=== PATIENT | female | born 1935 | race Caucasian/White ===

== ENCOUNTER 2021-12-28 16:26 | Emergency (ER) | payer MEDICARE ==
[~2021-12-28] VITALS: Ht 162.5 cm; Wt 70.3 kg
[2021-12-28 18:11] LABS: BASOPHILS % (AUTO) 0 % (0-10); EOSINOPHILS # (AUTO) 0.1 10^3/uL (0.0-0.3); EOSINOPHILS % (AUTO) 1 % (0-10); HEMATOCRIT 37 % (35-52); HEMOGLOBIN 12.1 g/dL (11.5-16.0); LYMPHOCYTES # (AUTO) 1.3 10^3/uL (1.0-4.0); LYMPHOCYTES % (AUTO) 20 % (12-44); MEAN CORPUSCULAR HEMOGLOBIN 32 pg (25-34); MEAN CORPUSCULAR HGB CONC 32 g/dL (32-36); MEAN CORPUSCULAR VOLUME 97 fL (80-99); MEAN PLATELET VOLUME 9.2 fL (9.0-12.2); MONOCYTES # (AUTO) 0.9 10^3/uL (0.0-1.0); MONOCYTES % (AUTO) 14 % (0-12); NEUTROPHILS # (AUTO) 4.2 10^3/uL (1.8-7.8); NEUTROPHILS % (AUTO) 65 % (42-75); PLATELET COUNT 212 10^3/uL (130-400); WHITE BLOOD COUNT 6.4 10^3/uL (4.3-11.0)
[2021-12-28 18:16] LABS: ALBUMIN 3.7 GM/DL (3.2-4.5); CHLORIDE 106 MMOL/L (98-107); SODIUM 139 MMOL/L (135-145)
[2021-12-28 18:17] LABS: CALCIUM 9.2 MG/DL (8.5-10.1); INR 1.4 (0.8-1.4); PROTHROMBIN TIME PATIENT 17.1 SEC (12.2-14.7)
[2021-12-28 18:18] LABS: GLUCOSE 131 MG/DL (70-105)
[2021-12-28 18:19] LABS: TOTAL PROTEIN 6.3 GM/DL (6.4-8.2)
[2021-12-28 18:20] LABS: BILIRUBIN,TOTAL 0.6 MG/DL (0.1-1.0); CARBON DIOXIDE 25 MMOL/L (21-32)
--- NOTE | 2021-12-28 18:20 | ED General ---
General Chief Complaint: Dizziness/Syncope Stated Complaint: SYNCOPE Nursing Triage Note: PT ARRIVED VIA [facility]. PT STATED THAT SHE WAS IN THE TRUCK WITH HER DAUGHTER AND HAD A SYNCOPAL EPISODE. PT STATED THAT SHE FELT SICK BEFORE SHE PASSED OUT AND THEN VOMITED WHEN SHE WOKE UP. Source of Information: Patient (DAUGHTER DOES ALL TALKING FOR PT), Other (DAUGHTER DOES ALL TALKING FOR PT) History of Present Illness Date Seen by Provider: Dec 28, 2021 Time Seen by Provider: 17:55 Initial Comments PT ARRIVED VIA EMS PRIOR TO MY ARRIVAL THEY HAVE BEEN AT [facility] FOR SEVERAL DAYS, AND WERE DRIVING BACK HOME TO [facility] PT HAS NOT FELT WELL FOR THE LAST 3 DAYS HAS BEEN WEAK HAS BEEN SHAKEY AND HAS HAD CHILLS HAS HAD A RUNNY / STUFFY NOSE TODAY IN THE CAR, SHE BEGAN TO HAVE NAUSEA AND VOMITED X 1 AND BRIEFLY WAS "UNCONSCIOUS" FOR APPROXIMATELY 45 SECONDS, THEN IT HAPPENED AGAIN--VOMITED AND WAS "UNCONSCIOUS" FOR A MINUTE TO 1 1/2 MINUTES PT HAS RECEIVED 1 LITER OF IV FLUIDS AND ZOFRAN PRIOR TO MY ARRIVAL PT STATES SHE FEELS BETTER NOW. PT HAS CHRONIC BACK PAIN AND IS TO HAVE A SPINAL STIMULATOR PLACED 01/07/22 HAS HAD INCREASED BACK PAIN THE LAST FEW DAYS PT HAS ATRIAL FIBRILLATION AND IS ON FLECANIDE, XARELTO AND PLAVIX NO MISSED DOSES OF MEDICATIONS NO CHEST PAIN NO SHORTNESS OF BREATH NO PALPITATIONS NO HEADACHE NO PARESTHESIAS OR MOTOR DEFICITS PT HAS HAD COVID-19 VACCINE X 3--LAST DOSE > 6 MONTHS AGO. Allergies and Home Medications Allergies Coded Allergies: cephalexin (Verified Allergy, Unknown, 12/28/21) Patient Home Medication List Home Medication List Reviewed: Yes Nitrofurantoin Monohyd/M-Cryst (Macrobid 100 mg Capsule) 100 Mg Capsule, 1 TAB PO BID Prescribed by: SABINO ALLRED on 12/28/211928 Ondansetron (Ondansetron Odt) 4 Mg Tab.rapdis, 4 MG PO Q4H Prescribed by: SABINO ALLRED on 12/28/211915 Review of Systems Review of Systems Constitutional: see HPI, chills, malaise, weakness EENTM: see HPI, nose congestion Respiratory: no symptoms reported; No cough, No short of breath Cardiovascular: see HPI; No chest pain; syncope Gastrointestinal: see HPI; No abdominal pain; nausea, vomiting Genitourinary: no symptoms reported Musculoskeletal: see HPI, back pain Skin: no symptoms reported Psychiatric/Neurological: See HPI (SYNCOPE); Denies Headache, Denies Numbness, Denies Paresthesia, Denies Seizure, Denies Tingling, Denies Weakness Hematologic/Lymphatic: No Symptoms Reported Immunological/Allergic: no symptoms reported Past Qtamjvf-[id number]-Orwtmp Hx Patient Social History Tobacco Use?: No Substance use?: No Alcohol Use?: Yes Alcohol Frequency: Once in a while Pt feels they are or have been: Unable to obtain Immunizations Up To Date Influenza Vaccine Up-to-Date: Yes; Up-to-Date Past Medical History Cardiac: Yes Atrial Fibrillation, High Cholesterol 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 oz. kg; 26.00 BMI Method: General Appearance: No Apparent Distress, WD/WN, Other (MILD GENERALIZED WEAKNESS. ) HEENT: PERRL/EOMI, Normal ENT Inspection, Moist Mucous Membranes Neck: Normal Inspection Respiratory: Normal Breath Sounds, No Accessory Muscle Use, No Respiratory Distress Cardiovascular: Regular Rate, Rhythm, No Edema, No JVD Gastrointestinal: Non Tender, Soft Extremity: Normal Capillary Refill, Normal Inspection, Normal Range of Motion, Non Tender, No Calf Tenderness, No Pedal Edema Neurologic/Psychiatric: Alert, Oriented x3, No Motor/Sensory Deficits, Normal Mood/Affect, literacy specialist II-XII Norm as Tested Skin: Normal Color, Warm/Dry Focused Exam Lactate Level 12/28/21 18:16: Lactic Acid Level 0.82 Lactic Acid Level Laboratory Tests Test 12/28/21 18:16 Lactic Acid Level 0.82 MMOL/L (0.50-2.00) Progress/Results/Core Measures Suspected Sepsis SIRS Temperature: Pulse: 52 Respiratory Rate: 18 Laboratory Tests 12/28/21 16:31: White Blood Count 6.4 Blood Pressure 113 /32 Mean: 59 12/28/21 18:16: Lactic Acid Level 0.82 Laboratory Tests 12/28/21 16:31: Creatinine 1.04, INR Comment 1.4, Platelet Count 212, Total Bilirubin 0.6 Results/Orders Lab Results Laboratory Tests Test 12/28/21 16:31 12/28/21 18:16 12/28/21 18:45 Range/Units White Blood Count 6.4 4.3-11.0 10^3/uL Red Blood Count 3.84 3.80-5.11 10^6/uL Hemoglobin 12.1 11.5-16.0 g/dL Hematocrit 37 35-52 % Mean Corpuscular Volume 97 80-99 fL Mean Corpuscular Hemoglobin 32 25-34 pg Mean Corpuscular Hemoglobin Concent 32 32-36 g/dL Red Cell Distribution Width 12.7 10.0-14.5 % Platelet Count 212 130-400 10^3/uL Mean Platelet Volume 9.2 9.0-12.2 fL Immature Granulocyte % (Auto) 0 % Neutrophils (%) (Auto) 65 42-75 % Lymphocytes (%) (Auto) 20 12-44 % Monocytes (%) (Auto) 14 H 0-12 % Eosinophils (%) (Auto) 1 0-10 % Basophils (%) (Auto) 0 0-10 % Neutrophils # (Auto) 4.2 1.8-7.8 10^3/uL Lymphocytes # (Auto) 1.3 1.0-4.0 10^3/uL Monocytes # (Auto) 0.9 0.0-1.0 10^3/uL Eosinophils # (Auto) 0.1 0.0-0.3 10^3/uL Basophils # (Auto) 0.0 0.0-0.1 10^3/uL Immature Granulocyte # (Auto) 0.0 0.0-0.1 10^3/uL Erythrocyte Sedimentation Rate 29 0-30 MM/HR Prothrombin Time 17.1 H 12.2-14.7 SEC INR Comment 1.4 0.8-1.4 Activated Partial Thromboplast Time 39 H 24-35 SEC Sodium Level 139 135-145 MMOL/L Potassium Level 4.0 3.6-5.0 MMOL/L Chloride Level 106 98-107 MMOL/L Carbon Dioxide Level 25 21-32 MMOL/L Anion Gap 8 5-14 MMOL/L Blood Urea Nitrogen 19 H 7-18 MG/DL Creatinine 1.04 0.60-1.30 MG/DL Estimat Glomerular Filtration Rate 52 BUN/Creatinine Ratio 18 Glucose Level 131 H 70-105 MG/DL Calcium Level 9.2 8.5-10.1 MG/DL Corrected Calcium 9.4 8.5-10.1 MG/DL Magnesium Level 2.1 1.6-2.4 MG/DL Total Bilirubin 0.6 0.1-1.0 MG/DL Aspartate Amino Transf (AST/SGOT) 23 5-34 U/L Alanine Aminotransferase (ALT/SGPT) 19 0-55 U/L Alkaline Phosphatase 55 40-136 U/L Total Creatine Kinase 76 29-168 U/L Creatine Kinase MB 3.1 <6.6 NG/ML Myoglobin 60.3 10.0-92.0 NG/ML Troponin I < 0.028 <0.028 NG/ML C-Reactive Protein High Sensitivity 4.28 H 0.00-0.50 MG/DL B-Type Natriuretic Peptide 123.6 H <100.0 PG/ML Total Protein 6.3 L 6.4-8.2 GM/DL Albumin 3.7 3.2-4.5 GM/DL Lipase 37 8-78 U/L Procalcitonin 0.05 <0.10 NG/ML TSH Greer Testing 2.10 0.35-4.94 UIU/ML Lactic Acid Level 0.82 0.50-2.00 MMOL/L Influenza Type A (RT-PCR) Not Detected Not Detecte Influenza Type B (RT-PCR) Not Detected Not Detecte SARS-CoV-2 RNA (RT-PCR) Detected H Not Detecte Urine Color ORANGE Urine Clarity CLEAR Urine pH 5.5 5-9 Urine Specific [place] >=1.030 1.016-1.022 Urine Protein TRACE H NEGATIVE Urine Glucose (UA) NEGATIVE NEGATIVE Urine Ketones NEGATIVE NEGATIVE Urine Nitrite NEGATIVE NEGATIVE Urine Bilirubin NEGATIVE NEGATIVE Urine Urobilinogen 0.2 < = 1.0 MG/DL Urine Leukocyte Esterase NEGATIVE NEGATIVE Urine RBC (Auto) NEGATIVE NEGATIVE Urine RBC NONE /HPF Urine WBC 2-5 /HPF Urine Squamous Epithelial Cells 5-10 /HPF Urine Crystals NONE /LPF Urine Bacteria FEW H /HPF Urine Casts PRESENT /LPF Urine Hyaline Casts 10-25 H /LPF Urine Mucus NEGATIVE /LPF Urine Culture Indicated YES My Orders Orders - SABINO ALLRED DO Ed Iv/Invasive Line Start (12/28/21 18:03) O2 (12/28/21 18:03) Monitor-Rhythm Ecg Trace Only (12/28/21 18:03) Ct Head Wo-R/O Stroke (12/28/21 18:03) Chest 1 View, Ap/Pa Only (12/28/21 18:03) Bnp [place] (12/28/21 18:03) Cbc With Automated Diff (12/28/21 18:03) Comprehensive Metabolic Panel (12/28/21 18:03) Creatine Kinase (12/28/21 18:03) Creatine Kinase Mb (12/28/21 18:03) Hs C Reactive Protein (12/28/21 18:03) Lactic Acid Analyzer (12/28/21 18:03) Lipase (12/28/21 18:03) Magnesium (12/28/21 18:03) Procalcitonin (Pct) (12/28/21 18:03) Protime With Inr (12/28/21 18:03) Partial Thromboplastin Time (12/28/21 18:03) Thyroid Analyzer (12/28/21 18:03) Ua Culture If Indicated (12/28/21 18:03) Erythrocyte Sedimentation Rate (12/28/21 18:03) Myoglobin Serum (12/28/21 18:03) Troponin I Zach (12/28/21 18:03) Covid 19 Inhouse Test (12/28/21 18:03) Influenza A And B By Pcr (12/28/21 18:03) Isolation Central Supply Req (12/28/21 18:03) Bebtelovimab (Bebtelovimab) (12/28/21 19:15) Nursing Communication (Order) (12/28/21 19:02) Urine Culture (12/28/21 18:45) Rx-Ondansetron Po (Rx-Zofran Po) (12/28/21 20:39) Acetaminophen Tablet (Tylenol Tablet) (12/28/21 21:00) Medications Given in ED Current Medications Medications Dose Ordered Sig/Gonzales Route Start Time Stop Time Status Last Admin Dose Admin Acetaminophen 1,000 mg ONCE ONCE PO 12/28/21 21:00 12/28/21 21:01 DC 12/28/21 20:58 1,000 MG Bebtelovimab 175 mg ONCE ONCE IV 12/28/21 19:15 12/28/21 19:16 DC 12/28/21 19:49 175 MG Vital Signs/I&O 12/28/21 12/28/21 16:26 20:41 Temp 36.0 Pulse 52 61 Resp 18 22 B/P (MAP) 113/32 (59) 146/88 Pulse Ox 91 98 O2 Delivery Nasal Cannula Room Air O2 Flow Rate 4.00 Capillary Refill : Less Than 3 Seconds Blood Pressure Mean: 59 Progress Note : Progress Note PPE WORN COVID AND FLU TESTING DONE NO NAUSEA OR VOMITING OR SYNCOPE AT ANY TIME DURING ER STAY VITALS STABLE NO COUGH NO DYSPNEA NO HYPOXIA NO FEVER DURING ER STAY GIVEN MONOCLONAL ANTIBODY INFUSION WITHOUT COMPLICATIONS PT LATER STATES SHE IS ALLERGIC TO KEFLEX/CEPHALEXIN JUST PT IS BEING DISMISSED, DAUGHTER WANTS PT TO HAVE TYLENOL. ECG Initial ECG Impression Date: Dec 28, 2021 Initial ECG Impression Time: 17:48 Initial ECG Rate: 55 Initial ECG Rhythm: Normal Sinus Initial ECG Impression: Nonspecific Changes, 1st Degree AV Block Initial ECG Comparisson: No Previous ECG Available Diagnostic Imaging Comments CT HEAD--PER RADIOLOGIST REPORT AT 1917 Ventricles and sulci are within normal limits for patient's age. There is low density in the deep white matter of both hemispheres, however, no hemorrhage is identified. There is no abnormal mass effect or shift of midline structures. Calvarium reveals no evidence of acute fracture. There is extensive mural thickening within the left frontal sinus, bilateral ethmoid air cells with moderate mural thickening within the sphenoid sinuses, greater on the left. Mild mural thickening and fluid is seen within the maxillary sinuses. There is thinning of the lateral wall of the left frontal sinus without definite intraorbital extension of inflammation. IMPRESSION: Rather advanced sinus disease, however, there is no CT evidence of acute intracranial abnormality. CXR--PER RADIOLOGIST REPORT AT 1923 Heart size and pulmonary vascularity are normal. Lungs are clear. There are no effusions or pneumothoraces. IMPRESSION: No acute abnormalities in the chest Reviewed: Reviewed by Mi Departure Communication (Admissions) 1899--DISCUSSED WITH PHARMACIST, AGREES THAT MONOCLONAL ANTIBODY INFUSION WOULD BE BEST TREATMENT OPTION FOR PT, SHE IS ON FLECANINDE. Impression Primary Impression: COVID-19 virus infection Additional Impressions: UTI (urinary tract infection) Mild dehydration Sinusitis Disposition: 01 HOME, SELF-CARE Condition: Stable Departure-Patient Inst. Decision time for Depature: 20:40 Referrals: NO,LOCAL PHYSICIAN (PCP/Family) Primary Care Physician Patient Instructions: Bebtelovimab FDA Fact Sheet, COVID-19 (DC), Preventing the Spread of an Infectious Disease, Urinary Tract Infection, Adult (DC) Add. Discharge Instructions: LOTS OF CLEAR LIQUIDS--WATER, BROTH, JELLO, GATORADE WHEN YOUR NAUSEA IS BETTER, ADD BRATS DIET TO CLEAR LIQUIDS--BANANAS, RICE, APPLESAUCE, TOAST, SALTINES TYLENOL NEEDED FOR PAIN OR FEVER FOLLOW UP WITH YOUR DR IN 3-4 DAYS IF NO BETTER, GO TO NEAREST ER IF SYMPTOMS WORSEN QUARANTINE FOR 10 DAYS All discharge instructions reviewed with patient and/or family. Voiced understanding. Scripts Nitrofurantoin Monohyd/M-Cryst (Macrobid 100 mg Capsule) 100 Mg Capsule 1 TAB PO BID, #20 CAP Prov: SABINO ALLRED DO 12/28/21 Ondansetron (Ondansetron Odt) 4 Mg Tab.rapdis 4 MG PO Q4H for Nausea/Vomiting, #10 TAB Prov: SABINO ALLRED DO 12/28/21 SABINO ALLRED DO Dec 28, 2021 18:20
[2021-12-28 18:22] LABS: ALKALINE PHOSPHATASE 55 U/L (40-136); CREATININE SERUM 1.04 MG/DL (0.60-1.30); GFR ESTIMATED 52
[2021-12-28 18:23] LABS: BUN/CREATININE RATIO 18
[2021-12-28 18:25] LABS: ALANINE AMINOTRANSFERASE 19 U/L (0-55); MAGNESIUM 2.1 MG/DL (1.6-2.4)
[2021-12-28 18:26] LABS: CREATINE KINASE 76 U/L (29-168); LIPASE 37 U/L (8-78)
[2021-12-28 18:34] LABS: CREATINE KINASE MB 3.1 NG/ML (<6.6)
[2021-12-28 18:38] LABS: ERYTHROCYTE SEDIMENTATION RATE 29 MM/HR (0-30)
[2021-12-28 19:01] LABS: BILIRUBIN,URINE NEGATIVE (NEGATIVE); CLARITY,URINE CLEAR; COLOR,URINE ORANGE; GLUCOSE, URINE (UA) NEGATIVE (NEGATIVE); KETONES,URINE NEGATIVE (NEGATIVE); LEUKOCYTE ESTERASE ,URINE NEGATIVE (NEGATIVE); NITRITE,URINE NEGATIVE (NEGATIVE); PH,URINE 5.5 (5-9); PROTEIN,URINE TRACE (NEGATIVE)
[2021-12-28 19:10] LABS: BACTERIA,URINE FEW /HPF
--- NOTE | 2021-12-28 19:13 | Diagnostic Imaging Report ---
PROCEDURE: CT head wo r/o stroke. TECHNIQUE: Multiple contiguous axial images were obtained through the brain without the use of intravenous contrast. Auto Exposure Controls were utilized during the CT exam to meet ALARA standards for radiation dose reduction. INDICATION: Syncope Ventricles and sulci are within normal limits for patient's age. There is low density in the deep white matter of both hemispheres, however, no hemorrhage is identified. There is no abnormal mass effect or shift of midline structures. Calvarium reveals no evidence of acute fracture. There is extensive mural thickening within the left frontal sinus, bilateral ethmoid air cells with moderate mural thickening within the sphenoid sinuses, greater on the left. Mild mural thickening and fluid is seen within the maxillary sinuses. There is thinning of the lateral wall of the left frontal sinus without definite intraorbital extension of inflammation. IMPRESSION: Rather advanced sinus disease, however, there is no CT evidence of acute intracranial abnormality. Dictated by: Dictated on workstation # [id number]
[2021-12-28] MEDS ORDERED: BEBTELOVIMAB 175 MG/2 ML VIAL IV ONE (19:15)
[2021-12-28] MEDS ORDERED: CEFD300C3 PO (19:16)
[2021-12-28] MEDS ORDERED: ONDA4TAB11 PO (19:16)
--- NOTE | 2021-12-28 19:20 | Diagnostic Imaging Report ---
INDICATION: Syncope Portable chest 6:58 PM Heart size and pulmonary vascularity are normal. Lungs are clear. There are no effusions or pneumothoraces. IMPRESSION: No acute abnormalities in the chest Dictated by: Dictated on workstation # [id number]
[2021-12-28] MEDS ORDERED: NITR-65 PO (19:29)
[2021-12-28] MEDS ORDERED: RX-ONDANSETRON 4 MG ODT (ZOFRAN) PPK #4 PO STA (20:39)
[2021-12-28 20:41] VITALS: BP 146/88
[2021-12-28] MEDS ORDERED: ACETAMINOPHEN 500 MG TAB (TYLENOL) PO ONE (21:00)
== END 2021-12-28 21:23 | disposition home or self-care (01) ==
LOC: ER 16:29
DX: U07.1 COVID-19 (principal); N39.0 Urinary tract infection, site not specified; E86.0 Dehydration; J32.9 Chronic sinusitis, unspecified; I48.91 Unspecified atrial fibrillation; Z79.01 Long term (current) use of anticoagulants; Z79.02 Long term (current) use of antithrombotics/antiplatelets; Z79.899 Other long term (current) drug therapy
CPT/HCPCS: 36415; 70450; 71045; 80053; 81000; 82550; 82553; 83605; 83690; 83735; 83874; 83880; 84145; 84443; 84484; 85025; 85610; 85652; 85730; 86141; 87088; 87636; 93005